=== PATIENT | female | born 1990 | race Caucasian/White ===

== ENCOUNTER 2017-12-16 22:31 | Emergency (ER) | payer SELFPAY ==
[2017-12-16 22:37] VITALS: BP 121/71
--- NOTE | 2017-12-16 22:48 | EDPHY ---
H & P Smoking Status: Never smoked Time Seen by Provider: 12/16/17 22:41 HPI/ROS: CHIEF COMPLAINT: Laceration between right 4th and 5th toe HISTORY OF PRESENT ILLNESS: 27-year-old female with out-of-date tetanus sustained accidental laceration of the webspace treat her right 4th and 5th toe when she impacted the bed railing this evening. Occurred shortly prior to arrival. No paresthesia. Full weight-bearing. PHYSICAL EXAM (Prior to examination, patient consented to physical exam, hands were washed and my usual and customary physical exam procedures followed) 1) GENERAL: Well-developed, well-nourished, alert and oriented. Appears to be in no acute distress. 2) HEAD: Normocephalic 3) HEENT: sclera anicteric 4) LUNGS: Breathing comfortably. 5) SKIN: In the webspace to the 4th and 5th toe the patient has a 2.5 cm laceration. 6) MUSCULOSKELETAL: Full range of motion with no deficits. . No underlying osseous discomfort. No deformity no angulation no shortening. 7) NEUROLOGIC: Full sensation distally. (Flaca De La Garza) Constitutional: Initial Vital Signs Temperature (C) 36.5 C 12/16/17 22:34 Heart Rate 65 12/16/17 22:34 Respiratory Rate 20 12/16/17 22:34 Blood Pressure 121/71 H 12/16/17 22:34 O2 Sat (%) 96 12/16/17 22:34 O2 Delivery Mode Room Air Allergies/Adverse Reactions: No Known Allergies Allergy (Unverified 12/16/17 22:34) Home Medications: Medication Instructions Recorded NK [No Known Home Meds] 12/16/17 MDM/Departure - MDM Procedures: Procedure: Laceration repair. I explained the indications, risks and benefits for both laceration repair and anesthetic administration. Verbal consent was obtained from the patient. The laceration on the webspace to the right 4th and 5th toes was anesthetized using 0.5% bupivicaine without epinephrine. After anesthetic administered the patient was observed for a period of time and had no apparent adverse effects. The wound was cleaned, prepped, draped in normal sterile fashion and explored to its base. No foreign body seen, no foreign bodies palpated. There were no deep structures involved. No tendon injury was identified. The wound was repaired with 6 simple interrupted 5 O Ethilon sutures. The wound repair was complex. The procedure was performed by myself. Patient has been informed that scarring will occur, although efforts have been made to minimize this. Procedure: Splint A postop shoe splint was applied by ER training technician to reduce stress on the laceration area. After application of the splint I returned and re-examined the patient. The splint was adequately immobilizing the joint and distal to the splint the patient's circulation and sensation were intact. (Flaca De La Garza) ED Course/Re-evaluation: PHYSICIAN DOCUMENTATION: The patient was evaluated and managed by the Physician Rubber Stamp Assembler. My co- signature indicates that I have reviewed this chart and I agree with the findings and plan of care as documented. I am the secondary supervising physician. (Sarah Mendiola) - Depart Disposition: Home, Routine, Self-Care Clinical Impression: Toe laceration Condition: Good Instructions: Care For Your Stitches (ED), Laceration (ED) Additional Instructions: Return to the ER if you develop redness, swelling, discharge, warmth to the wound, red streaks going up your leg, or any other symptoms that concern you. Referrals: Return, to the ER in 14 days for suture removal [Other] - 12/30/17
== END 2017-12-16 23:25 | disposition home or self-care (01) ==
PROC: 0HQMXZZ Repair Right Foot Skin, External Approach (ICD-10-PCS; principal; 2017-12-16)
DX: S91.311A Laceration without foreign body, right foot, initial encounter (principal); W26.8XXA Contact with other sharp object(s), not elsewhere classified, initial encounter; Y99.8 Other external cause status